=== PATIENT | female | born 1980 | race Caucasian/White ===

== ENCOUNTER 2022-08-08 21:42 | Emergency (ER) | payer MEDICAID ==
[~2022-08-08] VITALS: Ht 165.1 cm; Wt 82.0 kg
[~2022-08-08 21:42] MED LIST: AZIT250T12; CALC1TAB17; FERR1TAB25; PREN1TAB19
[2022-08-08 21:47] VITALS: BP 148/95
== END 2022-08-09 04:04 | disposition left against medical advice (07) ==
LOC: ER 21:42
DX: Z53.21 Procedure and treatment not carried out due to patient leaving prior to being seen by health care provider (principal)